=== PATIENT | female | born 1965 | race Caucasian/White ===

== ENCOUNTER → 2023-12-03 08:01 | Outpatient (REF) | payer BC, SELFPAY | LOC: DHCBC/DCA 08:01 | PROVIDERS: ATTENDING PHYSICIAN Internal Medicine Interventional Cardiology; FAMILY PHYSICIAN Family Medicine | DX: R06.09 Other forms of dyspnea (principal) | CPT/HCPCS: 78452; 93017; A9500 ==

== ENCOUNTER → 2023-12-04 15:47 | Outpatient (REF) | payer BC, SELFPAY | LOC: DHCBS MAIN 15:47 | PROVIDERS: ATTENDING PHYSICIAN Internal Medicine Interventional Cardiology; FAMILY PHYSICIAN Family Medicine | DX: R06.09 Other forms of dyspnea (principal) | CPT/HCPCS: 93306 ==

== ENCOUNTER 2025-08-13 15:30 | Emergency (ER) | payer BC, SELFPAY ==
[2025-08-13 15:33] VITALS: BP 142/94
[2025-08-13] MEDS: DILAUDID 1 MG IV (17:25)
--- NOTE | 2025-08-13 17:29 | ED.GENMED ---
History of Present Illness
General
Chief Complaint: Fall
Source: patient
Exam Limitations: none
Time Seen by Provider: 08/13/25 16:55
History of Present Illness
History of Present Illness:
See MDM
Past History
Past History
ED Past Medical History: None
ED Past Surgical History: None
Social History
Tobacco: Non-smoker
Alcohol: None
Phy Exam
Physical Exam
Physical Exam:
See MDM
Course
Orders/Labs/Results
Orders:
Orders
08/13/25 15:46
Ankle, left 3 view CR [CR Ankle - Left Min 3 Views ] Urgent
Comment:
Reason For Exam: pain
CR Wrist - Left Min 3 Views Urgent
Comment:
Reason For Exam: pain
CR Wrist - Right Min 3 Views Urgent
Comment:
Reason For Exam: pain
08/13/25 17:15
HYDROmorphone [Dilaudid] 1 mg .ROUTE .STK-MED ONE
08/13/25 17:25
HYDROmorphone [Dilaudid] 1 mg IV NOW STA
08/13/25 17:27
Oxycodone/Acetaminophen [Percocet 5/325] 1 tablet PO NOW STA
Vital Signs
Initial and Last Documented VS:
Initial Vital Signs
Temp Pulse Resp BP Pulse Ox
97.9 F 81 16 142/94 100
08/13/25 15:33 08/13/25 15:33 08/13/25 15:33 08/13/25 15:33 08/13/25 15:33
Last Documented Vital Signs
Temp Pulse Resp BP Pulse Ox
97.9 F 81 16 142/94 100
08/13/25 15:33 08/13/25 15:33 08/13/25 15:33 08/13/25 15:33 08/13/25 17:29
MDM/Problems Addressed
Differential Diagnosis Includes:
Note:
CHIEF COMPLAINT(S)
Bilateral wrist fractures.
HISTORY OF PRESENT ILLNESS
The patient is a 60-year-old female who presents with bilateral wrist pain after a fall. The injury occurred while she was cleaning, slipping while on her knees on the stairs, resulting in her left leg going under her and attempting to brace the
fall with her arms. The patient states, 'I tried to brace myself,' indicating her arms were positioned to absorb the impact. She reports the pain as significant but expresses a strong preference to manage at home rather than be admitted to the
hospital, stating, 'I prefer not to stay in the hospital.' She acknowledges that managing with splints will be difficult but mentioned her spouse will assist in caring for her at home.
PAST MEDICAL AND SURGICAL HISTORY
Not discussed.
EXTERNAL RECORDS REVIEWED
Not discussed.
PHYSICAL EXAM
General: Alert, no acute distress. Uncomfortable
Skin: Warm, dry.
Head: Normocephalic, atraumatic
Neck: Appears supple, trachea midline.
Eyes, Ears, Nose, Mouth, and Throat: Moist mucous membranes
Cardiovascular: No signs of cyanosis
Respiratory: Respirations are non-labored.
Abdomen: Non-distended
Musculoskeletal: Bilateral tenderness to palpation of distal radius. Decreased range of motion secondary to pain. Distal extremities otherwise neurovascular intact
Neurological: No focal neurological deficit observed.
Psychiatric: Cooperative, appropriate mood and affect.
PLAN
- Splinting: Application of volar splints with black Velcro to allow some hand movement.
- Pain Management: Provision of a strong pain medication to manage discomfort.
DIFFERENTIAL DIAGNOSIS
The Differential Diagnosis includes, in no particular order and is not limited to:
- Wrist fracture
- Contusion of the wrist
- Wrist sprain
- Ligament injury
- Neuropraxia
- Compartment syndrome (less likely due to maintained sensation)
- Head trauma with minor contusion (given head impact)
- Radial or ulnar fracture
- Carpal bone fracture
- Possible concussion from head injury (though not directly addressed)
SUMMARY OF ENCOUNTER
The patient presented to the emergency department with bilateral wrist fractures incurred from a fall. Both wrists are fractured but not displaced, reducing the need for surgical intervention. The fractures were confirmed via radiographic imaging.
Given the patients expressed desire to manage the condition at home, splints were applied to allow for some functionality and a prescription for pain medication was provided. The patient was counseled on the potential for swelling and the necessity
of follow-up with an recruiting specialist. The patient�s is available to assist with care.
DISPOSITION
Discharge
ASSESSMENT
Bilateral wrist fractures with no displacement, head contusion.
EMERGENCY TREATMENTS ADMINISTERED
Splints applied to both wrists and prescription for pain medication given.
PATIENT EDUCATION AND COUNSELING
The patient was educated on the nature of her fractures, the importance of pain management, and the need to allow movement with her splints to prevent excessive swelling. The rationale for not immobilizing with a cast at this stage was explained,
emphasizing the risk of increased swelling.
FOLLOW-UP INSTRUCTIONS
The patient was given contact information for orthopedic specialists, specifically preferring to follow-up with a hand specialist in [facility]. She was advised to contact them promptly for further management and evaluation of her wrist injuries.
MEDICATION RECONCILIATION
Provided a prescription for strong pain medication for the management of bilateral wrist fracture pain.
MEDICAL DECISION MAKING
-Complexity of Data Reviewed: Chronic conditions affecting care include only acute bilateral wrist fractures. The Differential Diagnosis includes, in no particular order and is not limited to wrist fractures and head contusion.
-Data:
Category 1: Not applicable.
Category 2: Not applicable.
Category 3: Not applicable.
-Risk: Consideration of Admission/Observation was discussed but the patient expressed a strong preference for outpatient management. The decision was made to discharge with close follow-up as the patients symptoms were well-managed and stable.
DIAGNOSIS
Bilateral wrist fractures (S62.91XA for unspecified fracture of the right wrist, initial encounter; S62.92XA for unspecified fracture of the left wrist, initial encounter)
Disposition:
SUMMARY OF ENCOUNTER
The patient presented after a fall down a few steps with bilateral distal radial fractures. Due to the need for some functionality in her hands, universal Velcro splints were applied to both hands instead of bivouglass splints. The patient was
offered admission for rehabilitation placement, but she and her expressed a preference for managing at home. Her is confident in assisting with her activities of daily living. Pain management medication was prescribed, and follow-up
with an recruiting specialist was discussed.
DISPOSITION
Discharge
ASSESSMENT
Bilateral distal radial fractures from a fall.
PLAN
Application of universal Velcro splints for support and partial functionality, pain management with medication, and outpatient follow-up with an recruiting specialist.
PATIENT EDUCATION AND COUNSELING
The patient was informed about her fractures, the choice of splinting for mobility, and the importance of follow-up care for her injuries.
FOLLOW-UP INSTRUCTIONS
The patient was advised to schedule a follow-up appointment with an recruiting specialist for further evaluation and management of her wrist injuries.
MEDICATION RECONCILIATION
Prescribed pain medication for the management of bilateral distal radial fracture pain.
MEDICAL DECISION MAKING
-Complexity of Data Reviewed: Chronic conditions affecting care include bilateral wrist fractures. Differential Diagnosis includes wrist fracture, contusion of the wrist, wrist sprain, ligament injury, neuropraxia, compartment syndrome, head trauma
with minor contusion, radial or ulnar fracture, carpal bone fracture, and possible concussion.
-Data:
Category 1: Not applicable.
Category 3: Management was discussed with the patient and her about potential admission for rehabilitation, but they opted for home care.
-Risk: Consideration of Admission/Observation was discussed but the patient preferred outpatient management. The decision to discharge was based on work-up reassurance, controlled symptoms, stable vitals, and reliable follow-up agreement.
*Pulse Oximetry
SaO2: 100
Oxygen Mode of Delivery: Room air
Patient hypoxic: no
*Critical Care Note
Total Time (30-74mins, 75-104mins- exclusive of procedures): Not Applicable
ED Attending Note
-
Portions of this chart may have been created with voice recognition software.� Occasional wrong word or��sound alike� substitutions may have occurred due to the inherent limitations of voice recognition software.
Discharge Plan
Departure
Patient Disposition: Home (Routine Discharge)
Date of Disposition: 08/13/25
Time of Disposition: 17:31
Patient with high blood pressure during this ER visit?: Yes
Discharge Problem:
Closed fracture of both wrists
Instructions: Common Wrist Injuries ED, BLOOD PRESSURE
Prescriptions:
New
ondansetron 4 mg Tablet,Disintegrating
4 mg PO BIDPRN PRN (Reason: nausea/vomiting) Qty: 10 0RF
oxycodone 5 mg tablet
5 mg PO Q8H PRN (Reason: Pain) Qty: 14 0RF
No Action
gabapentin 400 mg Tablet
400 mg PO HS
omeprazole 20 mg Tablet,Delayed Release (Dr/Ec)
20 mg PO DAILY
Referrals:
yMriam Reagan I., DO [Active, Orthopedics]
Activity Restrictions/Additional Instructions:
Please return for any worsening symptoms.
You may return at any time if you have further concerns.
Please follow up with your doctor at the first available appointment, preferably this week. Please make a call to see the orthopedist.
You were given a prescription for narcotics. If you require this pain medicine, please take a daily [id number] stool softener to avoid constipation.
Thank you for choosing [facility].
Interventions
Interventions:
*Risk Screen - Suicide Last Done: 08/13/25 15:33
*Neglect/Abuse Screening Last Done: 08/13/25 15:33
Discharge Date and Time
Print Language: LITHUANIAN
[2025-08-13] MEDS: PERCOCET 5/325 1 TABLET PO (17:38)
== END 2025-08-13 17:47 | disposition home or self-care (01) ==
LOC: EMR 15:30
PROVIDERS: EMERGENCY PHYSICIAN Student in an Organized Health Care Education/Training Program; FAMILY PHYSICIAN Nurse Practitioner Family
DX: S52.502A Unspecified fracture of the lower end of left radius, initial encounter for closed fracture (principal); S52.571A Other intraarticular fracture of lower end of right radius, initial encounter for closed fracture; W10.9XXA Fall (on) (from) unspecified stairs and steps, initial encounter; Y93.E9 Activity, other interior property and clothing maintenance; Y92.009 Unspecified place in unspecified non-institutional (private) residence as the place of occurrence of the external cause
CPT/HCPCS: 99284; 96374; 29125 ×2; 73110; 73610